=== PATIENT | male | born 1970 | race American Indian/Alaskan Native ===

== ENCOUNTER 2020-09-03 11:04 | Emergency (ER) | payer OTHER ==
[2020-09-03 11:28] VITALS: BP 141/81
--- NOTE | 2020-09-03 12:59 | Emergency Department Report ---
- General Chief complaint: Back Pain/Injury Stated complaint: BACK PAIN Time Seen by Provider: 09/03/20 12:08 Source: patient Mode of arrival: Ambulatory Limitations: No Limitations - History of Present Illness Initial comments: 50-year-old male presents to the ER today with complaints of left-sided flank pain. Patient states that pain started about a week ago. He states that it has been getting worse. States that this sort of a burning pain and it has been constant. He states is nonradiating. He denies any associated UTI symptoms, abdominal pain, bowel or bladder incontinence, saddle anesthesia, lower extremity numbness, tingling or weakness. He denies any fever or chills. He denies any back injury. He states that he did feel a little nauseous this morning and vomited once. He states that has been using [id number] remedies without much improvement of his symptoms. He states that he did notice a rash to the area yesterday. He states that he does have a history of eczema but this rash seems different and it is painful. complaint: rash -: Gradual, week(s) (1) - Related Data Previous Rx's Medication Instructions Recorded Last Taken Type Acetaminophen/Codeine [Tylenol 1 tab PO Q4HR PRN #12 tablet 09/03/20 Unknown Rx /Codeine # 3 tab] Valacyclovir HCl [Valtrex] 1,000 mg PO Q8HR #21 tablet 09/03/20 Unknown Rx predniSONE [Deltasone] 40 mg PO QDAY #10 tab 09/03/20 Unknown Rx Allergies Allergy/AdvReac Type Severity Reaction Status Date / Time No Known Allergies Allergy Unverified 09/03/20 11:24 Abscess Boil HPI - HPI Chief Complaint: Back Pain/Injury Stated Complaint: BACK PAIN Time Seen by Provider: 09/03/20 12:08 Home Medications: Previous Rx's Medication Instructions Recorded Last Taken Type Acetaminophen/Codeine [Tylenol 1 tab PO Q4HR PRN #12 tablet 09/03/20 Unknown Rx /Codeine # 3 tab] Valacyclovir HCl [Valtrex] 1,000 mg PO Q8HR #21 tablet 09/03/20 Unknown Rx predniSONE [Deltasone] 40 mg PO QDAY #10 tab 09/03/20 Unknown Rx Allergies/Adverse Reactions: Allergies Allergy/AdvReac Type Severity Reaction Status Date / Time No Known Allergies Allergy Unverified 09/03/20 11:24 ED Review of Systems ROS: Stated complaint: BACK PAIN Other details as noted in HPI Comment: All other systems reviewed and negative Constitutional: denies: chills, fever Eyes: denies: eye pain, eye discharge, vision change Respiratory: denies: cough, shortness of breath, SOB with exertion, SOB at rest, wheezing Cardiovascular: denies: chest pain, palpitations, edema, syncope, paroxysmal nocturnal dyspnea Gastrointestinal: denies: abdominal pain, nausea, vomiting, diarrhea, constipation, hematemesis, hematochezia Genitourinary: denies: urgency, dysuria, frequency, hematuria, discharge, testicular pain, testicular mass Musculoskeletal: back pain. denies: joint swelling, arthralgia Skin: rash Neurological: denies: headache, weakness, numbness, paresthesias, confusion, abnormal gait, vertigo Psychiatric: denies: anxiety, depression, auditory hallucinations, visual hallucinations, homicidal thoughts, suicidal thoughts Hematological/Lymphatic: denies: easy bleeding, easy bruising ED Past Medical Hx - Past Medical History Previous Medical History?: Yes Hx Hypertension: Yes - Surgical History Past Surgical History?: No - Medications Home Medications: Home Medications Medication Instructions Recorded Confirmed Last Taken Type Acetaminophen/Codeine [Tylenol 1 tab PO Q4HR PRN #12 tablet 09/03/20 Unknown Rx /Codeine # 3 tab] Valacyclovir HCl [Valtrex] 1,000 mg PO Q8HR #21 tablet 09/03/20 Unknown Rx predniSONE [Deltasone] 40 mg PO QDAY #10 tab 09/03/20 Unknown Rx ED Physical Exam - General Limitations: No Limitations General appearance: alert, in no apparent distress - Head Head exam: Present: atraumatic, normocephalic, normal inspection - Eye Eye exam: Present: normal appearance, PERRL, EOMI Pupils: Present: normal accommodation - Neck Neck exam: Present: normal inspection, full ROM - Respiratory Respiratory exam: Present: normal lung sounds bilaterally. Absent: respiratory distress - Cardiovascular Cardiovascular Exam: Present: regular rate, normal rhythm, normal heart sounds - GI/Abdominal GI/Abdominal exam: Present: soft. Absent: distended, tenderness, guarding, rebound - Back Exam Back exam: Present: full ROM, rash noted (Erythematous, vesicular rash noted along a dermatome pattern (T12/L1) left flank area. No associated secondary bacterial infection.) - Neurological Exam Neurological exam: Present: alert, oriented X3, CN II-XII intact, normal gait. Absent: motor sensory deficit - Psychiatric Psychiatric exam: Present: normal affect, normal mood - Skin Skin exam: Present: intact ED Course Vital Signs 09/03/20 11:25 Temperature 98.3 F Pulse Rate 75 Respiratory 18 Rate Blood Pressure 141/81 [Right] O2 Sat by Pulse 99 Oximetry Critical care attestation.: If time is entered above; I have spent that time in minutes in the direct care of this critically ill patient, excluding procedure time. ED Disposition Clinical Impression: Shingles Disposition: DC- TO HOME OR SELFCARE Is pt being admited?: No Does the pt Need Aspirin: No Condition: Stable Instructions: Shingles, [id number] Additional Instructions: Take the antiviral, the prednisone and the pain medication as prescribed. Follow up PCP listed on discharge instruction. Return to ED if worse. Prescriptions: predniSONE [Deltasone] 40 mg PO QDAY #10 tab Acetaminophen/Codeine [Tylenol /Codeine # 3 tab] 1 tab PO Q4HR PRN #12 tablet PRN Reason: Pain Valacyclovir HCl [Valtrex] 1,000 mg PO Q8HR #21 tablet Referrals: TERRIE HANEY MD [Staff Physician] - 3-5 Days Time of Disposition: 12:59
== END 2020-09-03 13:59 | disposition home or self-care (01) ==
LOC: ED 11:04
DX: B02.9 Zoster without complications (principal); I10 Essential (primary) hypertension; Z79.899 Other long term (current) drug therapy
CPT/HCPCS: 99281